=== PATIENT | male | born 1980 | race Caucasian/White ===

== ENCOUNTER 2023-12-23 08:23 | Outpatient (CLI) | payer OTHER | END 2023-12-23 08:39 | disposition home or self-care (01) | LOC: SONOGRAMA 08:23 | PROVIDERS: ATTEND Pathology Anatomic Pathology & Clinical Pathology | DX: C73 Malignant neoplasm of thyroid gland (principal); E03.1 Congenital hypothyroidism without goiter; E04.1 Nontoxic single thyroid nodule ==